=== PATIENT | male | born 1985 ===

== ENCOUNTER 2018-07-04 10:52 | Emergency (ER) | payer OTHER ==
[2018-07-04 11:05] VITALS: O2SAT 98
[2018-07-04 11:06] VITALS: BMI 25.9
--- NOTE | 2018-07-04 12:12 | ED PDOC ---
HPI: Skin/Bite Injury Time Seen by Provider: 07/04/18 11:58 Chief Complaint (Nursing): Abnormal Skin Integrity Chief Complaint (Provider): facial rash History Per: Patient, [employer] ([id number]) History/Exam Limitations: no limitations Onset/Duration Of Symptoms: Days (5) Location Of Injury: Left: Face Quality Of Symptoms: Painful, Itching Severity: Moderate Additional Complaint(s): 32yo male prior well c/o painful/itchy rash to left forhead 4-5 days. Denies eye pain, redness, tearing or change in vision. Denies current headache or fever. No prior history of shingles, denies other medical problems. Past Medical History Reviewed: Historical Data, Nursing Documentation, Vital Signs Vital Signs: Last Vital Signs Temp 98.1 F 07/04/18 11:04 Pulse 88 07/04/18 11:04 Resp 18 07/04/18 11:04 BP 123/79 07/04/18 11:04 Pulse Ox 98 07/04/18 11:04 - Medical History PMH: No Chronic Diseases - Family History Family History: States: Unknown Family Hx - Home Medications Home Medications: Ambulatory Orders Medication Instructions Recorded Ibuprofen [Motrin Tab] 600 mg PO Q6 PRN #15 tab 07/04/18 Valacyclovir HCl [Valtrex] 1,000 mg PO Q8 #21 tablet 07/04/18 - Allergies Allergies/Adverse Reactions: Allergies Allergy/AdvReac Type Severity Reaction Status Date / Time Penicillins Allergy SWELLING Verified 07/04/18 11:33 Review of Systems Constitutional: Negative for: Fever Eyes: Negative for: Pain, Vision Change, Conjunctivae Inflammation, Eyelid Inflammation, Redness ENT: Negative for: Ear Pain Cardiovascular: Negative for: Chest Pain Respiratory: Negative for: Shortness of Breath Gastrointestinal: Negative for: Abdominal Pain Genitourinary Male: Negative for: Dysuria Musculoskeletal: Negative for: Neck Pain Skin: Positive for: Rash, Lesions Neurological: Positive for: Headache. Negative for: Weakness, Numbness, Dizziness Psych: Negative for: Suicidal ideation Physical Exam - Reviewed Nursing Documentation Reviewed: Yes Vital Signs Reviewed: Yes - Physical Exam Appears: Positive for: Well, Non-toxic, No Acute Distress Head Exam: Positive for: ATRAUMATIC, NORMAL INSPECTION, NORMOCEPHALIC Skin: Positive for: Warm, Rash (zoster like rash left forehead dermatomal into hair line, no rash near eye). Negative for: Cyanosis Eye Exam: Positive for: Normal appearance, EOMI, PERRL. Negative for: Periorbital swelling, Periorbital tenderness Neck: Positive for: Normal, Painless ROM Respiratory: Negative for: Respiratory Distress Neurological/Psych: Positive for: Awake, Alert, Normal Tone - ECG O2 Sat by Pulse Oximetry: 98 Medical Decision Making Medical Decision Making: start valtrex, pain medicine educated via pattern maker programer potentially contagious, avoid contact with others especially young/old/ women. Indications for return ER discussed alexa if eye pain, redness or change vision develops. Disposition - Clinical Impression Clinical Impression: Shingles rash - Disposition Referrals: [facility] [Outside] Disposition: Routine/Home Disposition Time: 12:25 Condition: STABLE Additional Instructions: This rash is from a virus that can be contagious with direct touch. Avoid contact with others, especially children, elderly, or women. Take antiviral medication as directed and pain medicine as needed and directed. Esta erupcin es de un virus que puede ser contagioso con contacto directo. Evite el contacto con otras personas, especialmente con nios, ancianos o mujeres embarazadas. [place] los medicamentos antivirales segn las indicaciones y los analgsicos segn sea necesario y segn las indicaciones. Regrese a la abelardo de emergencias por cualquier dolor en los ojos, cambios en la visin, enrojecimiento en los ojos o secreciones oculares. Prescriptions: Ibuprofen [Motrin Tab] 600 mg PO Q6 PRN #15 tab PRN Reason: Pain, Moderate (4-7) Valacyclovir HCl [Valtrex] 1,000 mg PO Q8 #21 tablet Instructions: Shingles (DC) Forms: [facility] (Macedonian), [facility] School/Work Excuse Print Language: ARMENIAN
[2018-07-04 12:42] VITALS: BP 127/78; PULSE 78; RESP 21; TEMP 97.7
== END 2018-07-04 12:43 | disposition home or self-care (01) ==
LOC: H.ER 10:52
DX: B02.9 Zoster without complications (principal); Z88.0 Allergy status to penicillin